=== PATIENT | male | born 1995 | race African-American/Black ===

== ENCOUNTER 2017-07-29 15:21 | Emergency (ER) | payer SELFPAY ==
[~2017-07-29] VITALS: Ht 182.9 cm; Wt 75.0 kg
[2017-07-29 15:23] VITALS: BP 135/84; PULSE 86; RESP 12; TEMP 98.4; O2SAT 96
[2017-07-29] MEDS ORDERED: IBUPROFEN 800 MG TAB PO ONE (16:30)
--- NOTE | 2017-07-29 16:42 | PD ---
HPI Chief Complaint: Injury Time Seen by Provider: 16:33 Travel History International Travel<30 days: No Contact w/Intl Traveler<30days: No Traveled to known affect area: No History of Present Illness HPI 21-year-old male presents to emergency Department with complaint of left hand pain and swelling and left wrist pain since this morning after dropping a TV on his hand. Denies paresthesias, loss of sensation to the affected extremity. Reports full range of motion to all of his fingers. Has been icing his hand for symptom management. Has not taken any medications to alleviate his symptoms. Symptoms are moderate in severity. Pain is aggravated with palpation. He says it doesn't hurt to move his fingers. No known allergies. Has no other medical complaints. No other modifying factors or associated signs and symptoms. PFSH Social History Tobacco Use: No Allergies-Medications (Allergen,Severity, Reaction): Coded Allergies: No Known Allergies (Unverified , 07/29/17) Reported Meds & Prescriptions Reported Meds & Active Scripts Active Lortab (Hydrocodone-Acetaminophen) 5-325 Mg Tab 1 Tab PO Q4H PRN Ibuprofen 800 Mg Tab 800 Mg PO Q6HR PRN Review of Systems Except as stated in HPI: all other systems reviewed are Neg Physical Exam Narrative GENERAL: Well-nourished, well-developed black male patient, in no acute distress SKIN: Warm and dry. HEAD: Atraumatic. Normocephalic. EYES: Pupils equal and round. No scleral icterus. No injection or drainage. ENT: Mucosa pink and moist. Airway patent. NECK: Trachea midline. CARDIOVASCULAR: Regular rate. RESPIRATORY: No accessory muscle use. GASTROINTESTINAL: Flat. MUSCULOSKELETAL: Left hand with edema and ecchymosis over the fourth and fifth at a copper area; with tenderness on palpation over the fourth and fifth metacarpals; without erythema; no obvious deformity; all fingers with full range of motion and sensory intact; less than 3 second cap refill. Left wrist with tenderness on palpation and without erythema, edema, ecchymosis; no obvious deformity; with full range of motion. Left upper extremity is supple and non-tense. 2+ radial pulses and sensory intact. No obvious deformities. No clubbing. No cyanosis. No edema. NEUROLOGICAL: Awake and alert. Oriented 3. No obvious cranial nerve deficits. Motor grossly within normal limits. Normal speech. PSYCHIATRIC: Appropriate mood and affect; insight and judgment normal. Data Data Last Documented VS Vital Signs Date Time Temp Pulse Resp B/P (MAP) Pulse Ox O2 Delivery O2 Flow Rate FiO2 07/29/17 15:23 98.4 86 12 135/84 (101) 96 Orders Orders Hand, Complete ([id number]) (07/29/17 16:25) Wrist, Complete ([id number]) (07/29/17 16:25) Ibuprofen (Motrin) (07/29/17 16:30) Splint Or Brace Apply/Monitor (07/29/17 17:01) Sling Cradle Arm (07/29/17 ) MDM Medical Decision Making Medical Screen Exam Complete: Yes Emergency Medical Condition: Yes Medical Record Reviewed: Yes Differential Diagnosis Fracture, contusion, dislocation Narrative Course 21-year-old male with left hand and wrist injury. I offered the patient pain medication and he requested ibuprofen. Ibuprofen ordered. Left hand and wrist x-ray ordered. 1658: Left hand x-ray concludes: Slightly comminuted fractures of the fourth and fifth mid metacarpals with slight dorsal angulation and displacement particularly of the fourth metacarpal. Left wrist x-ray concludes: Fracture fourth and fifth metacarpals. Ulnar gutter splint placed. Arm sling provided for support. Mandatory outpatient referral ordered for patient follow-up. Lortab and ibuprofen prescribed for home. Instructed patient to follow up with hand specialist by the end of the week. Instructed patient to follow up with primary care provider. Patient verbalizes understanding and agreement with treatment plan. Patient is medically cleared and stable for discharge. Discussed reasons to return to the emergency department. Patient agrees with treatment plan. The patients vital signs are stable and the patient is stable for outpatient follow-up and treatment. Patient discharged home, stable and in no acute distress. Diagnosis Primary Impression: Left hand fracture Qualified Codes: S62.92XA - Unspecified fracture of left wrist and hand, initial encounter for closed fracture Referrals: Hand Surgeon Primary Care Physician Patient Instructions: General Instructions, Hand Fracture (ED) Departure Forms: Tests/Procedures, Work Release Special Instructions: Unable to work until you're cleared by primary care provider or hand specialist Additional Instructions: Tylenol or ibuprofen as directed and as needed to reduce pain Rest, ice, compress, and elevate extremity to decrease pain and inflammation Splint for support; do not remove the splint until you follow up with the hand surgeon Avoid aggravating activity; increase activity as tolerated Follow-up with primary care provider Follow-up with hand surgeon by the end of the week Return to the emergency department immediately with worsening symptoms Med/Other Pt SpecificInfo: Prescription(s) given Scripts Hydrocodone-Acetaminophen (Lortab) 5-325 Mg Tab 1 TAB PO Q4H Y for PAIN, #15 TAB 0 Refills Prov: Carolyn Burns 07/29/17 Ibuprofen (Ibuprofen) 800 Mg Tab 800 MG PO Q6HR Y for PAIN, #40 TAB 0 Refills Prov: Carolyn Burns 07/29/17 Disposition: 01 DISCHARGE HOME Condition: Stable Carolyn Burns Jul 29, 2017 16:42
--- NOTE | 2017-07-29 16:55 | RADRPT ---
EXAM DATE/TIME: 07/29/2017 16:36 [facility] COMPARISON: No previous studies available for comparison. INDICATIONS : Television fell on left hand. Pain in medial metacarpals. MEDICAL HISTORY : None. SURGICAL HISTORY : None. ENCOUNTER: Initial ACUITY: 1 day PAIN SCORE: 8/10 LOCATION: Left hand, 4th & 5th metacarpal FINDINGS: Horizontal fractures through the midportion of the fourth and fifth metacarpals with minimal angulati on. No other fractures are appreciated. CONCLUSION: Fracture fourth and fifth metacarpals. Jimmy Zavala MD FACR on July 29, 2017 at 16:53 Board Certified Radiologist. This report was verified electronically.
--- NOTE | 2017-07-29 16:56 | RADRPT ---
EXAM DATE/TIME: 07/29/2017 16:40 [facility] COMPARISON: No previous studies available for comparison. INDICATIONS : Television fell on left hand. Pain in medial metacarpals. MEDICAL HISTORY : None. SURGICAL HISTORY : None. ENCOUNTER: Initial ACUITY: 1 day PAIN SCORE: 8/10 LOCATION: Left hand, 4th & 5th metacarpal FINDINGS: Slightly comminuted fractures of the fourth and fifth mid metacarpals with slight dorsal angulation a nd displacement particularly of the fourth metacarpal. Remaining osseous structures appear intact. Raina int spaces are maintained. There is soft tissue swelling primarily along the dorsum of the hand. CONCLUSION: 1. Mid fourth and fifth metacarpal fractures, as above. Jose David Leyva MD on July 29, 2017 at 16:53 Board Certified Radiologist. This report was verified electronically.
[2017-07-29] MEDS ORDERED: HYDR-3533 PO ×2 (16:57→17:05)
[2017-07-29] MEDS ORDERED: IBUP800T23 PO (16:57)
== END 2017-07-29 17:50 | disposition home or self-care (01) ==
LOC: NEPK 15:21
DX: S62.92XA Unspecified fracture of left hand, initial encounter for closed fracture (principal); W23.0XXA Caught, crushed, jammed, or pinched between moving objects, initial encounter
CPT/HCPCS: 73110; 73130; 99283

== ENCOUNTER 2017-08-10 16:11 | Inpatient (IN) | payer MEDICAID ==
[~2017-08-10] VITALS: Ht 182.9 cm; Wt 79.5 kg
[~2017-08-10 16:11] MED LIST: HYDR-3533 PO; IBUP800T23 PO
[2017-08-10 16:14] VITALS: BP 133/82; PULSE 95; RESP 18; TEMP 98.4; O2SAT 99
--- NOTE | 2017-08-10 18:50 | RADRPT ---
EXAM DATE/TIME: 08/10/2017 18:23 [facility] COMPARISON: HAND LEFT COMPLETE ([id number]), July 29, 2017, 16:40. INDICATIONS : Left hand pain fourth and fifth digits. MEDICAL HISTORY : None. SURGICAL HISTORY : None. ENCOUNTER: Initial ACUITY: 1 week PAIN SCORE: 8/10 LOCATION: Left hand FINDINGS: 3 views of left hand show acute fractures involving the fourth and fifth metacarpals. These fractures involve the mid diaphyses. There has been dorsal displacement of the distal fracture fragment of the fourth metacarpal relative to the proximal fracture fragment when compared to the prior study. This further angulation has resulted in 1-2 mm of overlap. The facet fracture is stable. Dorsal soft tissu e swelling is noted. CONCLUSION: Dorsal displacement of the distal fracture fragment of the fourth metacarpal fracture relative to the prior study. The fifth metacarpal fracture is unchanged. Paulie Raphael Jr., MD on August 10, 2017 at 18:48 Board Certified Radiologist. This report was verified electronically.
--- NOTE | 2017-08-10 19:07 | PD ---
HPI Chief Complaint: Medical Clearance Time Seen by Provider: 16:33 Travel History International Travel<30 days: No Contact w/Intl Traveler<30days: No Traveled to known affect area: No History of Present Illness HPI 21-year-old left-handed male presents to the emergency room for evaluation of left hand fracture. Patient broke his hand 12 days ago after dropping a TV on it. States he was splinted and told to follow-up with a hand surgeon but the mandatory outpatient referral was never placed and patient never was able to follow-up. States this morning in the shower he got his splint wet so they came to have it replaced. Patient denies any worsening pain or paresthesias. He reports decreased strength in the fourth and fifth fingers. He has otherwise been compliant and kept his splint on. No chronic medical conditions or daily medications. [facility] Social History Tobacco Use: No Allergies-Medications (Allergen,Severity, Reaction): Coded Allergies: No Known Allergies (Unverified , 07/29/17) Reported Meds & Prescriptions Reported Meds & Active Scripts Active Lortab (Hydrocodone-Acetaminophen) 5-325 Mg Tab 1 Tab PO Q4H PRN Ibuprofen 800 Mg Tab 800 Mg PO Q6HR PRN Review of Systems Except as stated in HPI: all other systems reviewed are Neg Physical Exam Narrative GENERAL: Well-nourished, well-developed male in no acute distress. Afebrile. Ambulatory. SKIN: Focused skin assessment warm/dry. Heme or ecchymosis. HEAD: Normocephalic. EYES: No scleral icterus. No injection or drainage. NECK: Supple, trachea midline. No JVD or lymphadenopathy. CARDIOVASCULAR: Regular rate and rhythm without murmurs, gallops, or rubs. RESPIRATORY: Breath sounds equal bilaterally. No accessory muscle use. MUSCULOSKELETAL: No cyanosis. Moderate edema of the left hand. Moderate tenderness to palpation in the left fourth and fifth fingers. There is obvious deformity of the fourth metacarpal. Less than 2 second capillary refill distally. 2+ radial pulse. Full range motion of the left hand. No obvious rotation or angulation. Decreased strength with extension of the left fourth and fifth fingers. Data Data Last Documented VS Vital Signs Date Time Temp Pulse Resp B/P (MAP) Pulse Ox O2 Delivery O2 Flow Rate FiO2 08/10/17 16:14 98.4 95 18 133/82 (99) 99 Orders Orders Hand, Complete ([id number]) (08/10/17 ) [facility] Medical Decision Making Medical Screen Exam Complete: Yes Emergency Medical Condition: Yes Medical Record Reviewed: Yes Differential Diagnosis Fracture, strain, sprain, contusion Narrative Course 21-year-old male presents to the emergency room for evaluation of left hand pain and swelling for the past 12 days. Patient broke his hand 12 days ago and came to the emergency room and was splinted. Was supposed to follow up with hand surgery but mandatory outpatient referral was not placed. States he returned today because his splint got wet. Reports no worsening of symptoms or paresthesias. There is obvious deformity of the left fourth metacarpal which is tender to palpation. Left hand is Neurovascularly intact. He has decreased strength with extension in the fourth and fifth fingers. I spoke to the hand surgeon program production specialist, Dr. Davenport, who recommends new x-rays and admission to medical service for surgical fixation likely tomorrow. Patient is agreeable. Diagnosis Primary Impression: Closed left hand fracture Qualified Codes: S62.92XD - Unspecified fracture of left wrist and hand, subsequent encounter for fracture with routine healing Admitting Information Admitting Physician Requests: Observation Condition: Stable Aniya Romero Aug 10, 2017 19:07
[2017-08-10] MEDS ORDERED: SODIUM CHLORIDE 0.9% FLUSH 10 ML FLUSH IVF PRN (19:15)
[2017-08-10 19:32] VITALS: BP 145/95; PULSE 90; RESP 18; O2SAT 99
--- NOTE | 2017-08-10 19:34 | PD ---
Physical Exam Date Seen by Provider: Aug 10, 2017 Time Seen by Provider: 19:31 Narrative 21-year-old male that presents to the ED for evaluation of left hand injury. I was asked by Aniya COOK to disposition patient to admit to the [facility] or resident team for surgery tomorrow. Please refer to her note. Data Data Last Documented VS Vital Signs Date Time Temp Pulse Resp B/P (MAP) Pulse Ox O2 Delivery O2 Flow Rate FiO2 08/10/17 16:14 98.4 95 18 133/82 (99) 99 Orders Orders Hand, Complete ([id number]) (08/10/17 ) Complete Blood Count With Diff (08/10/17 19:07) Comprehensive Metabolic Panel (08/10/17 19:07) Prothrombin Time / Inr (Pt) (08/10/17 19:07) Act Partial Throm Time (Ptt) (08/10/17 19:07) Type And Screen (08/10/17 19:07) Iv Access Insert/Monitor (08/10/17 19:07) Ice/Cold Pack (08/10/17 19:07) Sodium Chloride 0.9% Flush (Ns Flush) (08/10/17 19:15) Admit Order (Ed Use Only) (08/10/17 19:28) Consult Hand Surgery (08/10/17 ) [facility] Medical Record Reviewed: Yes Supervised Visit with PEDRO: No Interpretation(s) Last Impressions Hand X-Ray 08/10/17 0000 Signed Impressions: Service Date/Time: Saturday, August 10, 2017 18:23 - CONCLUSION: Dorsal displacement of the distal fracture fragment of the fourth metacarpal fracture relative to the prior study. The fifth metacarpal fracture is unchanged. Paulie Raphael Jr., MD Differential Diagnosis Fracture versus nonhealing fracture versus chronic pain Narrative Course 21-year-old male that presents to the ED for evaluation of hand fracture. Please refer to a hi PACs provider note. I was asked to disposition the patient and admit him to medicine. She had already spoken with hand surgeon extractions technician who recommended admission and nothing by mouth after midnight. Surgery tomorrow morning. I spoke with the residents who agreed to this admission. Patient was admitted. Patient was put in a splint. Labs were already ordered and pending. Patient was told all this by Aniya JIMENEZ and family and patient agree with plan. Diagnosis Primary Impression: Closed left hand fracture Qualified Codes: S62.92XD - Unspecified fracture of left wrist and hand, subsequent encounter for fracture with routine healing Admitting Information Admitting Physician Requests: Observation Condition: Stable Yamil Barron Aug 10, 2017 19:34
[2017-08-10 19:44] LABS: AUTOMATED NEUTROPHIL # 4.1 TH/MM3 (1.8-7.7); BASOPHIL % 0.3 % (0.0-2.0); EOSINOPHIL # 0.1 TH/MM3 (0-0.4); EOSINOPHIL % 0.8 % (0.0-4.0); HEMATOCRIT 40.5 % (39.0-51.0); HEMO FLAGS DIFF FINAL; LYMPH % 40.7 % (9.0-44.0); LYMPHOCYTE # 3.2 TH/MM3 (1.0-4.8); MEAN CELL VOLUME 82.3 FL (80.0-100.0); MEAN CORPUSCULAR HEMOGLOBIN 28.6 PG (27.0-34.0); MEAN CORPUSCULAR HGB CONC 34.7 % (32.0-36.0); MONO % 6.2 % (0.0-8.0); PLATELET COUNT 254 TH/MM3 (150-450); RED BLOOD COUNT 4.92 MIL/MM3 (4.50-5.90); RED CELL DISTRIBUTION WIDTH 12.6 % (11.6-17.2)
[2017-08-10 19:58] LABS: ALT (GPT) 20 U/L (9-52)
[2017-08-10] MEDS ORDERED: SENNOSIDES 8.6 MG TAB PO PRN (20:00)
[2017-08-10] MEDS ORDERED: SODIUM CHLORIDE 0.9% FLUSH 10 ML FLUSH IV FLUSH PRN (20:00)
[2017-08-10] MEDS ORDERED: ONDANSETRON HCL 4 MG/2 ML VIAL IVP PRN (20:00)
[2017-08-10] MEDS ORDERED: ACETAMINOPHEN 325 MG TAB PO PRN (20:00)
[2017-08-10] MEDS ORDERED: ACETAMINOPHEN/HYDROcodone 325 MG/5 MG TAB PO PRN (20:00)
[2017-08-10] MEDS ORDERED: NALOXONE HCL 0.4 MG/ML AMP IV PUSH PRN (20:00)
[2017-08-10] MEDS ORDERED: BISACODYL 10 MG SUPP RECTAL PRN (20:00)
[2017-08-10] MEDS ORDERED: MAGNESIUM HYDROXIDE SUSP 30 ML CUP PO PRN (20:00)
[2017-08-10] MEDS ORDERED: LACTULOSE SYRUP 20 GM/30 ML CUP PO PRN (20:00)
[2017-08-10 20:01] LABS: ALKALINE PHOSPHATASE 63 U/L (45-117); TOTAL BILIRUBIN ADULT 0.3 MG/DL (0.2-1.0)
[2017-08-10 20:09] LABS: ANION GAP 7 MEQ/L (5-15); APTT (PATIENT) 27.4 SEC (24.3-30.1); AST (GOT) 9 U/L (15-39); BICARBONATE 26.6 MEQ/L (21.0-32.0); BLOOD UREA NITROGEN 5 MG/DL (7-18); CHLORIDE 107 MEQ/L (98-107); GLOMERULAR FILTRATION RATE 139 ML/MIN (>89); POTASSIUM 3.6 MEQ/L (3.5-5.1); PROTHROMBIN TIME - PATIENT 10.6 SEC (9.8-11.6); SODIUM (NA) 141 MEQ/L (136-145)
--- NOTE | 2017-08-10 20:09 | HHI.HP ---
[facility] Service Family Medicine Primary Care Physician Karla Baer, DO Admission Diagnosis left hand 4th and 5th metacarpal fractures Diagnoses: International Travel<30 Days: No Contact w/Intl Traveler<30days: No History of Present Illness Patient is a 21 year old male with no significant PMH who presents for follow- up of left hand fractures. He had a TV fall on the left hand when he tried to move it on 07/29/17 It was placed in a splint in the ED that day and patient was to follow up as outpatient Referral not placed and no follow up occurred He did note getting splint wet today Patient states pain only occurs when he tries to close the fingers He is able to use 1st through 3rd fingers without difficulty He is left-handed He denies any other concerns and states Lortab helped with the pain significantly Review of Systems Constitutional: DENIES: Fever, Chills Eyes: DENIES: Blurred vision, Diplopia Ears, nose, mouth, throat: DENIES: Hearing loss, Vertigo Musculoskeletal: COMPLAINS OF: Joint pain, Joint Swelling, DENIES: Stiffness, Back pain, Neck pain Integumentary: DENIES: Pruritus, Rash Hematologic/lymphatic: DENIES: Bruising, Lymphadenopathy Neurologic: COMPLAINS OF: Paresthesias (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), DENIES: Abnormal gait, Headache, Poor Balance Past Family Social History Past Medical History None reported Past Surgical History None reported Reported Medications Reported Meds & Active Scripts Active Lortab (Hydrocodone-Acetaminophen) 5-325 Mg Tab 1 Tab PO Q4H PRN Ibuprofen 800 Mg Tab 800 Mg PO Q6HR PRN Allergies: Coded Allergies: No Known Allergies (Unverified , 07/29/17) Active Ordered Medications Inpatient Medications Acetaminophen (Tylenol) 650 mg Q4H PRN PO FEVER > 100.4; Start 08/10/17 at 20: 00 Acetaminophen/ Hydrocodone Bitart (Crocker 5-325 Mg) 1 tab Q4H PRN PO PAIN SCALE 3 TO 5; Start 08/10/17 at 20:00 Acetaminophen/ Hydrocodone Bitart (Crocker 10-325 Mg) 1 tab Q4H PRN PO PAIN SCALE 6 TO 10; Start 08/10/17 at 20:00 Bisacodyl (Dulcolax Supp) 10 mg DAILY PRN RECTAL SEVERE CONSITIPATION; Start 10/21/17 at 20:00 Lactulose (Lactulose Liq) 30 ml DAILY PRN PO SEVERE CONSITIPATION; Start 08/10 at 20:00 Magnesium Hydroxide (Milk Of Magnesia Liq) 30 ml Q12H PRN PO Mild constipation ; Start 08/10/17 at 20:00 Morphine Sulfate (Morphine Inj) 4 mg Q3H PRN IV PUSH BREAKTHROUGH PAIN; Start 08/10/17 at 20:00 Naloxone HCl (Narcan Inj) 0.4 mg UNSCH PRN IV PUSH SEE LABEL COMMENTS; Start 08/10/17 at 20:00 Ondansetron HCl (Zofran Inj) 4 mg Q6H PRN IVP NAUSEA OR VOMITING; Start at 20:00 Senna/Docusate Sodium (Aaliyah-Colace) 1 tab BID PO ; Start 08/10/17 at 21:00 Sennosides (Senokot) 17.2 mg Q12H PRN PO Moderate constipation; Start at 20:00 Sodium Chloride (NS Flush) 2 ml BID IV FLUSH ; Start 08/10/17 at 21:00 Family History Unremarkable Social History Nonsmoker, denies EtoH, denies illicit drugs Physical Exam Vital Signs Vital Signs Date Time Temp Pulse Resp B/P (MAP) Pulse Ox O2 Delivery O2 Flow Rate FiO2 08/10/17 19:32 90 18 145/95 (112) 99 Room Air 08/10/17 16:14 98.4 95 18 133/82 (99) 99 Physical Exam GENERAL: well nourished young male in no apparent distress. Eating Chickfila. Father at bedside. SKIN: Warm and dry. No rashes or ecchymoses. Skin over right hand shiny and mildly erythematous MSK: LEFT hand noted to have bony deformity over dorsal surface over 4th metacarpal area, tender to palpation, skin intact. Erythema and swelling noted, mild. [place]erry Hand limited on this hand over 4th and 5th digits, normal in 1-3rd digits. RIGHT hand exam is normal. HEAD: Atraumatic. Normocephalic. EYES: Pupils equal and round. No scleral icterus. No injection or drainage. ENT: No nasal bleeding or discharge. Mucous membranes pink and moist. NECK: Trachea midline. No JVD. CARDIOVASCULAR: Regular rate and rhythm. 2+ distal pulses including left radial. Normal capillary refill in UEs bilaterally. RESPIRATORY: No accessory muscle use. Clear to auscultation. Breath sounds equal bilaterally. GASTROINTESTINAL: Abdomen soft, non-tender, nondistended. Hepatic and splenic margins not palpable. NEUROLOGICAL: Awake and alert. No obvious cranial nerve deficits. Motor grossly within normal limits. Five out of 5 muscle strength in the arms and legs aside from left hand. Normal speech. Neurovascularly intact. PSYCHIATRIC: Appropriate mood and affect; insight and judgment normal. Laboratory Laboratory Tests Test 08/10/17 19:22 White Blood Count 8.0 Red Blood Count 4.92 Hemoglobin 14.0 Hematocrit 40.5 Mean Corpuscular Volume 82.3 Mean Corpuscular Hemoglobin 28.6 Mean Corpuscular Hemoglobin Concent 34.7 Red Cell Distribution Width 12.6 Platelet Count 254 Mean Platelet Volume 7.2 Neutrophils (%) (Auto) 52.0 Lymphocytes (%) (Auto) 40.7 Monocytes (%) (Auto) 6.2 Eosinophils (%) (Auto) 0.8 Basophils (%) (Auto) 0.3 Neutrophils # (Auto) 4.1 Lymphocytes # (Auto) 3.2 Monocytes # (Auto) 0.5 Eosinophils # (Auto) 0.1 Basophils # (Auto) 0.0 CBC Comment DIFF FINAL Differential Comment Total Protein 6.8 Alkaline Phosphatase 63 Alanine Aminotransferase (ALT/SGPT) 20 Total Bilirubin 0.3 Result Diagram: 08/10/17 1922 Imaging Last Impressions Hand X-Ray 08/10/17 0000 Signed Impressions: Service Date/Time: Thursday, August 10, 2017 18:23 - CONCLUSION: Dorsal displacement of the distal fracture fragment of the fourth metacarpal fracture relative to the prior study. The fifth metacarpal fracture is unchanged. Paulie Raphael Jr., MD Caprini VTE Risk Assessment Caprini VTE Risk Assessment: No/Low Risk (score <= 1) Caprini Risk Assessment Model Point Value = 1 Point Value = 2 Point Value = 3 Point Value = 5 Age 41-60 Minor surgery BMI > 25 kg/m2 Swollen legs Varicose veins or History of unexplained or recurrent spontaneous Oral contraceptives or hormone replacement Sepsis (< 1 month) Serious lung disease, including pneumonia (< 1 month) Abnormal pulmonary function Acute myocardial infarction Congestive heart failure (< 1 month) History of inflammatory bowel disease Medical patient at bed rest Age 61-74 Arthroscopic surgery Major open surgery (> 45 min) Laparoscopic surgery (> 45 min) Malignancy Confined to bed (> 72 hours) Immobilizing plaster cast Central venous access Age >= 75 History of VTE Family history of VTE Factor V Leiden Prothrombin [id number] Lupus anticoagulant Anticardiolipin antibodies Elevated serum homocysteine Heparin-induced thrombocytopenia Other congenital or acquired thrombophilia Stroke (< 1 month) Elective arthroplasty Hip, pelvis, or leg fracture Acute spinal cord injury (< 1 month) Prophylaxis Regimen Total Risk Factor Score Risk Level Prophylaxis Regimen 0-1 Low Early ambulation 2 Moderate Order ONE of the following: *Sequential Compression Device (SCD) *Heparin 5000 units SQ BID 3-4 Higher Order ONE of the following medications: *Heparin 5000 units SQ TID *Enoxaparin/Lovenox 40 mg SQ daily (WT < 150 kg, CrCl > 30 mL/min) *Enoxaparin/Lovenox 30 mg SQ daily (WT < 150 kg, CrCl > 10-29 mL/min) *Enoxaparin/Lovenox 30 mg SQ BID (WT < 150 kg, CrCl > 30 mL/min) AND/OR *Sequential Compression Device (SCD) 5 or more Highest Order ONE of the following medications: *Heparin 5000 units SQ TID (Preferred with Epidurals) *Enoxaparin/Lovenox 40 mg SQ daily (WT < 150 kg, CrCl > 30 mL/min) *Enoxaparin/Lovenox 30 mg SQ daily (WT < 150 kg, CrCl > 10-29 mL/min) *Enoxaparin/Lovenox 30 mg SQ BID (WT < 150 kg, CrCl > 30 mL/min) AND *Sequential Compression Device (SCD) Assessment and Plan Assessment and Plan 21M with left hand injury from TV falling on it 2.5 weeks ago, with resultant nonhealing left 4th metacarpal, displaced. He will be admitted for surgical management. PA in ED spoke with Dr. Grace who agrees to evaluate in the morning. He will be NPO after midnight for possible surgical intervention. To be placed in splint. Labs were already ordered and pending. Pain control with tylenol and Crocker, with morphine PRN. Patient and father agree with plan. Code Status Full Code Discussed Condition With Dr. Mayo Problem List: (1) Closed left hand fracture ICD Codes: S62.92XA - Unspecified fracture of left wrist and hand, initial encounter for closed fracture Status: Acute Plan: As above (2) Fluids/Electrolytes/Nutrition/Prophylaxis Status: Acute Plan: Fluids: tolerating PO, NPO after midnight Electrolytes: monitor and replete as needed Nutrition: regular diet, NPO after midnight DVT Prophylaxis: Early ambulation. Low risk GI Prophylaxis: Not indicated Physician Certification 2 Midnight Certification Type: Admission for Inpatient Services Order for Inpatient Services The services are ordered in accordance with Medicare regulations or non- Medicare payer requirements, as applicable. In the case of services not specified as inpatient-only, they are appropriately provided as inpatient services in accordance with the 2-midnight benchmark. Estimated LOS (days): 2 days is the estimated time the patient will need to remain in the hospital, assuming treatment plan goals are met and no additional complications. Post-Hospital Plan: Home Problem Qualifiers (1) Closed left hand fracture: Qualified Codes: S62.92XD - Unspecified fracture of left wrist and hand, subsequent encounter for fracture with routine healing Niki Wheat MD R2 Aug 10, 2017 20:09
[2017-08-10 20:43] VITALS: BP 146/69; PULSE 74; RESP 16; TEMP 96.8; O2SAT 95
[2017-08-10] MEDS: DOCUSATE SODIUM 50 MG/SENNA 8.6 MG TAB PO SCH (21:00)
[2017-08-10] MEDS: SODIUM CHLORIDE 0.9% FLUSH 10 ML FLUSH IV FLUSH SCH (21:00)
[2017-08-10] MEDS: ACETAMINOPHEN/HYDROcodone 325 MG/10 MG TAB PO PRN (22:11)
[2017-08-10] MEDS ORDERED: METOPROLOL TARTRATE 25 MG TAB PO PRN (22:45)
[2017-08-10] MEDS ORDERED: INSULIN HUMAN REGULAR 1,000 UNITS/10 ML VIAL SQ PRN (22:45)
[2017-08-10] MEDS ORDERED: SODIUM CHLORID 0.9% 500 ML IV PRN (22:45)
[2017-08-10] MEDS ORDERED: CHLORHEXIDINE GLUCONATE 2 % 1 PACK (2 CLOTHS) TOPICAL PRN (22:45)
[2017-08-10] MEDS ORDERED: POVIDONE IODINE 5% (ANTISEPSIS KIT) 4 APPLICATIONS EACH NARE PRN (22:45)
--- NOTE | 2017-08-10 22:56 | MB ---
cc: REDD TIDWELL MD DATE OF CONSULTATION 08/10/17 REASON FOR CONSULTATION Left hand fracture. HISTORY OF PRESENT ILLNESS The patient is a 21-year-old left-hand dominant male who presented to the ED with complaints of injury to the left hand. The patient states 12 days ago a TV fell on his left hand while he was carrying the TV. The patient was initially seen at [place] emergency room. He had x-rays done, was diagnosed with fourth and fifth metacarpal shafts of the left hand. The patient was advised to follow up with a hand surgeon. The patient did not follow up with a hand surgeon. He presented today to the ED with splint getting wet. Denies any open wounds. Denies any tingling or numbness. PAST MEDICAL HISTORY/PAST SURGICAL HISTORY As noted. PHYSICAL EXAMINATION The patient is alert and oriented x3. Examination of left upper extremity reveals ulnar gutter splint in place. Examination after removal of splint reveals prominence over the fourth metacarpal shaft region, tenderness noted over the region. He has limited extension of the ring and little fingers. Range of motion of the fingers are limited and painful. He has intact sensation distally. He has intact capillary refill. X-rays of the left hand done today were reviewed, shows displaced fourth metacarpal shaft with dorsal apex angulation. There was overlap of the fragments on the lateral view. Also noted is a nondisplaced shaft fracture of the fifth metacarpal. This was compared to the previous x-rays done about 12 days ago which shows fracture fourth and fifth metacarpal shaft with the fourth shaft with a dorsal apex angulation. ASSESSMENT A 21-year-old male with fourth and fifth metacarpal shaft fracture left hand 12 days. PLAN The patient has a displaced fourth metacarpal shaft and displaced fifth metacarpal shaft. Because of the overlap and dorsal apex angulation, he would benefit from reduction and fixation. Risks and benefits of the procedure was explained to the patient. The patient is consented for closed/open reduction internal fixation fourth metacarpal shaft and possible fixation of the fifth metacarpal shaft of the left hand. We will proceed with surgery tomorrow morning. We will keep the patient n.p.o. from midnight. MD KATHY Fink /9:24 PM /10:42 PM
[2017-08-10 23:45] VITALS: BP_SYST 112; BP_SYST 120; BP_DIAS 66; BP_DIAS 82; PULSE 110; PULSE 69; RESP 18; TEMP 96.9; TEMP 99.5; O2SAT 96; O2SAT 99
[2017-08-11] MEDS: MORPHINE SULFATE 4 MG/ML INJ IV PUSH PRN ×2 (01:49→05:30)
[2017-08-11 03:10] VITALS: BP 141/67; PULSE 68; RESP 18; TEMP 96.9; O2SAT 97
[2017-08-11 08:00] VITALS: BP 106/60; PULSE 45; RESP 16; TEMP 96.6; O2SAT 100
[2017-08-11] MEDS: DOCUSATE SODIUM 50 MG/SENNA 8.6 MG TAB PO SCH ×2 (09:21→22:36)
[2017-08-11] MEDS: SODIUM CHLORIDE 0.9% FLUSH 10 ML FLUSH IV FLUSH SCH ×2 (09:22→22:37)
[2017-08-11] MEDS: ACETAMINOPHEN/HYDROcodone 325 MG/10 MG TAB PO PRN ×2 (09:22→19:40)
[2017-08-11] MEDS: LACTATED RINGER'S 1000 ML IV PRN (09:29)
--- NOTE | 2017-08-11 09:39 | HHI.FPPN ---
Subjective Remarks Patient is not in acute distress. Pain well controlled. Surgery scheduled for 1045 this am. No prob with anesthesia in family. NO surgeries perviously. No Hx of heart disease. METs > 4. AFVSS. NPO since midnight. Was told that his hand is not healing well and will need to be surgically corrected. (Kike Israel MD, R3) Objective Vitals Vital Signs Date Time Temp Pulse Resp B/P (MAP) Pulse Ox O2 Delivery O2 Flow Rate FiO2 08/11/17 03:10 96.9 68 18 141/67 (91) 97 08/10/17 23:45 96.9 69 18 112/66 (81) 96 08/10/17 21:02 08/10/17 20:43 96.8 74 16 146/69 (94) 95 08/10/17 19:32 90 18 145/95 (112) 99 Room Air 08/10/17 16:14 98.4 95 18 133/82 (99) 99 I/O 08/10/17 08/10/17 08/10/17 08/11/17 08/11/17 08/11/17 07:00 15:00 23:00 07:00 15:00 23:00 Intake Total 120 ml Balance 120 ml Intake Oral 120 ml # Voids 3 # Bowel Movements 0 (Kike Israel MD, R3) Result Diagram: 08/10/17192108/10/171921 A/P Assessment and Plan 21M with left hand injury from TV falling on it 2.5 weeks ago, with resultant nonhealing left 4th metacarpal, displaced. He will be admitted for surgical management. As per Dr. Grace, he will likely ORIF given apex angulation and overlap. We appreciate their management. Labs grossly WNL. Pain control with tylenol and [place], with morphine PRN. Patient and father agree with plan. (Kike Israel MD, R3) Attending Attestation Table rounds were conducted about patients admission with Dr Chavira, Dr Wheat, Dr Mayo and Dr Alonzo, EMR reviewed, patient was then seen and examined, Agree with contents os note, See Orders. (Chris Mckeon MD) Problem List: (1) Closed left hand fracture ICD Codes: S62.92XA - Unspecified fracture of left wrist and hand, initial encounter for closed fracture Status: Acute Plan: As above (2) Fluids/Electrolytes/Nutrition/Prophylaxis Status: Acute Plan: Fluids: tolerating PO, NPO after midnight Electrolytes: monitor and replete as needed Nutrition: regular diet, NPO after midnight DVT Prophylaxis: Early ambulation. Per ortho. GI Prophylaxis: Not indicated Dr. Mckeon, Dr. Ryan Wheat, Dr. Dania Mayo. (Kike Israel MD, R3) Problem Qualifiers (1) Closed left hand fracture: Qualified Codes: S62.92XD - Unspecified fracture of left wrist and hand, subsequent encounter for fracture with routine healing Kike Israel MD, R3 Aug 11, 2017 09:39 Chris Mckeon MD Aug 12, 2017 18:41
[2017-08-11 12:00] VITALS: BP 115/64; PULSE 55; RESP 16; TEMP 96.6; O2SAT 99
[2017-08-11] MEDS ORDERED: ACETAMINOPHEN 1000 MG/100 ML 0 ML IV ONE (15:33)
[2017-08-11] MEDS ORDERED: LIDOCAINE HCL 2% 50 ML VIAL ONE (15:46)
[2017-08-11] MEDS ORDERED: BACITRACIN TOP OINT 15 GM TUBE ONE (15:46)
[2017-08-11 16:00] VITALS: BP 125/59; PULSE 52; RESP 16; TEMP 96; O2SAT 100
[2017-08-11 20:05] VITALS: BP 125/60; PULSE 72; RESP 16; TEMP 96.8; O2SAT 97
[2017-08-12 00:10] VITALS: BP 114/65; PULSE 63; RESP 16; TEMP 97.4; O2SAT 98
[2017-08-12 04:15] VITALS: BP 113/72; PULSE 73; RESP 16; TEMP 96.5; O2SAT 98
[2017-08-12 07:17] VITALS: BP 103/59; PULSE 69; RESP 16; TEMP 96.4; O2SAT 98
[2017-08-12] MEDS: ACETAMINOPHEN/HYDROcodone 325 MG/10 MG TAB PO PRN ×3 (07:48→23:51)
[2017-08-12] MEDS: DOCUSATE SODIUM 50 MG/SENNA 8.6 MG TAB PO SCH ×2 (07:50→19:39)
[2017-08-12] MEDS: LACTATED RINGER'S 1000 ML IV PRN (07:51)
[2017-08-12] MEDS ORDERED: DEXAMETHASONE SOD PHOS 4 MG/ML VIAL IV ONE (08:41)
[2017-08-12] MEDS ORDERED: ceFAZolin INJ 1,000 MG VIAL IV ONE ×2 (08:41→12:20)
[2017-08-12] MEDS ORDERED: ONDANSETRON HCL 4 MG/2 ML VIAL IV PUSH ONE (08:41)
[2017-08-12] MEDS ORDERED: MIDAZOLAM HCL 2 MG/2 ML VIAL IV ONE (08:41)
[2017-08-12] MEDS ORDERED: PHENYLEPH/NS 1000 MCG/10 ML SYR IV ONE (08:41)
[2017-08-12] MEDS ORDERED: PROPOFOL 200 MG/20 ML AMP IV ONE (08:41)
[2017-08-12] MEDS ORDERED: LIDOCAINE HCL 1% PF 5 ML AMPULE OTHER ONE (08:43)
[2017-08-12] MEDS ORDERED: ROCURONIUM INJ 50 MG/5 ML SYRINGE IV PUSH ONE (08:43)
[2017-08-12] MEDS: SODIUM CHLORIDE 0.9% FLUSH 10 ML FLUSH IV FLUSH SCH ×2 (09:00→19:40)
[2017-08-12] MEDS ORDERED: ACETAMINOPHEN 1000 MG/100 ML 100 ML IV ONE (10:48)
[2017-08-12] MEDS ORDERED: LIDOCAINE HCL 2% 50 ML VIAL ONE (11:19)
[2017-08-12] MEDS ORDERED: BACITRACIN TOP OINT 15 GM TUBE ONE (11:20)
--- NOTE | 2017-08-12 11:40 | HHI.FPPN ---
Subjective Remarks Patient was seen and examined this morning. No complaints. No pain with current regimen. No nausea, vomiting. It is noted that he apparently ate chips yesterday prior to OR procedure and thus it was rescheduled for today. He endorses that he has not had anything to eat today. Objective Vitals Vital Signs Date Time Temp Pulse Resp B/P (MAP) Pulse Ox O2 Delivery O2 Flow Rate FiO2 08/12/17 07:17 96.4 69 16 103/59 (74) 98 08/12/17 04:15 96.5 73 16 113/72 (86) 98 08/12/17 00:10 97.4 63 16 114/65 (81) 98 08/11/17 20:05 96.8 72 16 125/60 (81) 97 08/11/17 16:00 96.0 52 16 125/59 (81) 100 08/11/17 12:00 96.6 55 16 115/64 (81) 99 I/O 08/11/17 08/11/17 08/11/17 08/12/17 08/12/17 08/12/17 07:00 15:00 23:00 07:00 15:00 23:00 Intake Total 120 ml 480 ml 0 ml Balance 120 ml 480 ml 0 ml Intake Oral 120 ml 480 ml 0 ml # Voids 3 3 2 2 # Bowel Movements 0 0 0 Result Diagram: 08/10/17192108/10/171921 Imaging Last Impressions Hand X-Ray 08/10/17 0000 Signed Impressions: Service Date/Time: Thursday, August 10, 2017 18:23 - CONCLUSION: Dorsal displacement of the distal fracture fragment of the fourth metacarpal fracture relative to the prior study. The fifth metacarpal fracture is unchanged. Paulie Raphael Jr., MD Objective Remarks GENERAL: well nourished young male in no apparent distress. SKIN: Warm and dry. No rashes or ecchymoses. Skin over right hand shiny and mildly erythematous MSK: Left hand is in a splint with normal appearing fingers distally. No swelling noted. Automatic Grinding Machine Operator limited on this hand over 4th and 5th digits, normal in 1- 3rd digits. RIGHT hand exam is normal. HEAD: Atraumatic. Normocephalic. EYES: Pupils equal and round. No scleral icterus. No injection or drainage. ENT: No nasal bleeding or discharge. Mucous membranes pink and moist. NECK: Trachea midline. No JVD. CARDIOVASCULAR: Regular rate and rhythm. 2+ distal pulses including left radial. Normal capillary refill in UEs bilaterally. RESPIRATORY: No accessory muscle use. Clear to auscultation. Breath sounds equal bilaterally. GASTROINTESTINAL: Abdomen soft, non-tender, nondistended. Hepatic and splenic margins not palpable. NEUROLOGICAL: Awake and alert. No obvious cranial nerve deficits. Motor grossly within normal limits. Five out of 5 muscle strength in the arms and legs aside from left hand. Normal speech. Neurovascularly intact. PSYCHIATRIC: Appropriate mood and affect; insight and judgment normal. Medications and IVs Inpatient Medications Acetaminophen (Tylenol) 650 mg Q4H PRN PO FEVER > 100.4; Start 08/10/17 at 20: 00 Acetaminophen/ Hydrocodone Bitart ([place] 5-325 Mg) 1 tab Q4H PRN PO PAIN SCALE 3 TO 5; Start 08/10/17 at 20:00 Acetaminophen/ Hydrocodone Bitart ([place] 10-325 Mg) 1 tab Q4H PRN PO PAIN SCALE 6 TO 10 Last administered on 08/12/17 07:48; Start 08/10/17 at 20:00 Bisacodyl (Dulcolax Supp) 10 mg DAILY PRN RECTAL SEVERE CONSITIPATION; Start 08/10/17 at 20:00 Chlorhexidine Gluconate (Chlorhexidine 2% Cloth) 3 pack MARINE CARGO INSPECTOR PRN TOPICAL SEE LABEL COMMENTS; Start 08/10/17 at 22:45; Stop 08/13/17 at 22:44 Insulin Human Regular (NovoLIN R INJ) See Protocol Table ... MARINE CARGO INSPECTOR PRN SQ SEE PROTOCOL TABLE; Start 08/10/17 at 22:45; Stop 08/13/17 at 22:44 Lactated Ringer's 1,000 ml @ 30 mls/hr Q24H PRN IV SEE LABEL COMMENTS Last administered on 08/12/17 07:51; Start 08/10/17 at 22:45; Stop 08/13/17 at 22 :44 Lactulose (Lactulose Liq) 30 ml DAILY PRN PO SEVERE CONSITIPATION; Start 08/10 at 20:00 Magnesium Hydroxide (Milk Of Magnesia Liq) 30 ml Q12H PRN PO Mild constipation ; Start 08/10/17 at 20:00 Metoprolol Tartrate (Lopressor) 25 mg MARINE CARGO INSPECTOR PRN PO SEE LABEL COMMENTS; Start 08/10/17 at 22:45; Stop 08/13/17 at 22:44 Morphine Sulfate (Morphine Inj) 4 mg Q3H PRN IV PUSH BREAKTHROUGH PAIN Last administered on 08/11/17 05:30; Start 08/10/17 at 20:00 Naloxone HCl (Narcan Inj) 0.4 mg UNSCH PRN IV PUSH SEE LABEL COMMENTS; Start 08/10/17 at 20:00 Ondansetron HCl (Zofran Inj) 4 mg Q6H PRN IVP NAUSEA OR VOMITING; Start at 20:00 Povidone Iodine (Betadine 5% Antisepsis Kit) 1 applic MARINE CARGO INSPECTOR PRN EACH NARE SEE LABEL COMMENTS; Start 08/10/17 at 22:45; Stop 08/13/17 at 22:44 Senna/Docusate Sodium (Aaliyah-Colace) 1 tab BID PO Last administered on 07:50; Start 08/10/17 at 21:00 Sennosides (Senokot) 17.2 mg Q12H PRN PO Moderate constipation; Start at 20:00 Sodium Chloride 500 ml @ 30 mls/hr [id number] PRN IV SEE LABEL COMMENTS; Start at 22:45; Stop 08/13/17 at 22:44 Sodium Chloride (NS Flush) 2 ml BID IV FLUSH Last administered on 08/11/17 22 :37; Start 08/10/17 at 21:00 Urinary Catheter: No Vascular Central Line Catheter: No A/P Assessment and Plan 21M with left hand injury from TV falling on it 2.5 weeks ago, with resultant nonhealing left 4th metacarpal, displaced. He will be admitted for surgical management. As per Dr. Grace, he will have ORIF given angulation and overlap. We appreciate their management. Labs grossly WNL. Pain control with Tylenol and [place], with morphine PRN. Patient and father agree with plan. Discharge Planning Pending OR procedure, possibly home later today or tomorrow. Problem List: (1) Closed left hand fracture ICD Codes: S62.92XA - Unspecified fracture of left wrist and hand, initial encounter for closed fracture Status: Acute Plan: As above (2) Fluids/Electrolytes/Nutrition/Prophylaxis Status: Acute Plan: Fluids: NPO after midnight Electrolytes: monitor and replete as needed Nutrition: regular diet, NPO after midnight DVT Prophylaxis: Early ambulation. Per ortho. GI Prophylaxis: Not indicated Problem Qualifiers (1) Closed left hand fracture: Qualified Codes: S62.92XD - Unspecified fracture of left wrist and hand, subsequent encounter for fracture with routine healing Niki Wheat MD R2 Aug 12, 2017 11:40
[2017-08-12] MEDS ORDERED: DO NOT ADM ANY ANTICOAGULANT DRUGS PRN (13:50)
--- NOTE | 2017-08-12 13:51 | PD.OP ---
Operative Report Preoperative Diagnosis: (1) Closed displaced fracture of shaft of fourth metacarpal bone of left hand (2) Nondisplaced fracture of shaft of fifth metacarpal bone of left hand Postoperative Diagnosis: (1) Closed displaced fracture of shaft of fourth metacarpal bone of left hand (2) Nondisplaced fracture of shaft of fifth metacarpal bone of left hand Procedure: attempted closed reduction open reduction and internal fixation fourth metacarpal shaft fracture left hand Anesthesia: general Surgeon: Jamel Grace Drop Man(s): marybeth Operation and Findings: displaced fourth metacarpal shaft fracture left hand undisplaced fifth metacarpal shaft fracture left hand Jamel Grace MD Aug 12, 2017 13:51
[2017-08-12] MEDS ORDERED: *morphine SULFATE 8 MG/ML PERIprocedure ONLY ONE (14:07)
[2017-08-12] MEDS ORDERED: *MEPERIDINE 25 MG INJ VIAL PERIprocedural Use ONLY ONE (14:20)
[2017-08-12 15:00] VITALS: BP 148/65; PULSE 76; RESP 16; TEMP 97.9; O2SAT 98
[2017-08-12] MEDS: MORPHINE SULFATE 4 MG/ML INJ IV PUSH PRN ×2 (15:35→19:40)
[2017-08-12 20:00] VITALS: BP 144/74; PULSE 83; RESP 16; TEMP 98.4; O2SAT 99
[2017-08-13] VITALS: BP 121/65; PULSE 61; RESP 15; TEMP 98.1; O2SAT 98
[2017-08-13] MEDS: ACETAMINOPHEN/HYDROcodone 325 MG/10 MG TAB PO PRN ×2 (07:39→11:03)
[2017-08-13] MEDS: DOCUSATE SODIUM 50 MG/SENNA 8.6 MG TAB PO SCH (07:39)
[2017-08-13 08:00] VITALS: BP 113/68; PULSE 61; RESP 20; TEMP 98; O2SAT 98
[2017-08-13] MEDS ORDERED: HYDR-3583 PO (08:27)
--- NOTE | 2017-08-13 08:28 | HHI.DCPOC ---
Discharge Care Plan Diagnosis: (1) Closed displaced fracture of shaft of fourth metacarpal bone of left hand (2) Nondisplaced fracture of shaft of fifth metacarpal bone of left hand Goals to Promote Your Health * To prevent worsening of your condition and complications * To maintain your health at the optimal level Directions to Meet Your Goals Take your medications as prescribed Follow your dietary instruction Follow activity as directed Keep your appointments as scheduled Take your immunizations and boosters as scheduled If your symptoms worsen call your PCP, if no PCP go to Urgent Care Center or Emergency Room Smoking is Dangerous to Your Health. Avoid second hand smoke Call the 24-hour hour crisis hotline for domestic abuse at Niki Wheat MD R2 Aug 13, 2017 08:28
--- NOTE | 2017-08-13 08:38 | HHI.FPPN ---
Subjective Remarks Patient was seen and examined this morning. His left hand pain is worse post- operatively but improved with oral and IV pain medications. Last IV meds were overnight. No fevers, chills. Eating without difficulty. He removed his IV himself this morning and is ready to go home. Objective Vitals Vital Signs Date Time Temp Pulse Resp B/P (MAP) Pulse Ox O2 Delivery O2 Flow Rate FiO2 08/13/17 00:00 98.1 61 15 121/65 (83) 98 08/12/17 20:00 98.4 83 16 144/74 (97) 99 08/12/17 15:00 97.9 76 16 148/65 (92) 98 08/12/17 14:35 98.4 78 12 136/86 (103) 99 Room Air 08/12/17 14:30 76 14 130/75 (93) 99 Room Air 08/12/17 14:15 87 13 150/87 (108) 100 Room Air 08/12/17 14:00 84 15 145/73 (97) 100 Nasal Cannula 2 08/12/17 13:51 98.0 88 20 152/90 (110) 100 Nasal Cannula 2 I/O 08/12/17 08/12/17 08/12/17 08/13/17 08/13/17 08/13/17 07:00 15:00 23:00 07:00 15:00 23:00 Intake Total 0 ml 1380 ml 600 ml 480 ml Output Total 5 ml Balance 0 ml 1375 ml 600 ml 480 ml Intake Oral 0 ml 480 ml 600 ml 480 ml IV Total 0 ml Other 900 ml Output Estimated Blood Loss 5 ml # Voids 2 1 3 4 # Bowel Movements 0 0 0 0 Result Diagram: 08/10/17192108/10/171921 Imaging Last Impressions Hand X-Ray 08/10/17 0000 Signed Impressions: Service Date/Time: Thursday, August 10, 2017 18:23 - CONCLUSION: Dorsal displacement of the distal fracture fragment of the fourth metacarpal fracture relative to the prior study. The fifth metacarpal fracture is unchanged. Paulie Raphael Jr., MD Objective Remarks GENERAL: well nourished young male in no apparent distress. SKIN: Warm and dry. No rashes or ecchymoses. Skin over right hand shiny and mildly erythematous MSK: Left hand is in post-surgical wrapping. Distal fingers examined with normal capillary refill. Mild limitation of ROM due to splint. Industrial Specialist limited on this hand over 4th and 5th digits, normal in 1-3rd digits. RIGHT hand exam is normal. HEAD: Atraumatic. Normocephalic. EYES: Pupils equal and round. No scleral icterus. No injection or drainage. ENT: No nasal bleeding or discharge. Mucous membranes pink and moist. NECK: Trachea midline. No JVD. CARDIOVASCULAR: Regular rate and rhythm. 2+ distal pulses including left radial. Normal capillary refill in UEs bilaterally. RESPIRATORY: No accessory muscle use. Clear to auscultation. Breath sounds equal bilaterally. GASTROINTESTINAL: Abdomen soft, non-tender, nondistended. Hepatic and splenic margins not palpable. NEUROLOGICAL: Awake and alert. No obvious cranial nerve deficits. Motor grossly within normal limits. Five out of 5 muscle strength in the arms and legs aside from left hand. Normal speech. Neurovascularly intact. PSYCHIATRIC: Appropriate mood and affect; insight and judgment normal. Medications and IVs Inpatient Medications Acetaminophen (Tylenol) 650 mg Q4H PRN PO FEVER > 100.4; Start 08/10/17 at 20: 00 Acetaminophen/ Hydrocodone Bitart (Rufe 5-325 Mg) 1 tab Q4H PRN PO PAIN SCALE 3 TO 5; Start 08/10/17 at 20:00 Acetaminophen/ Hydrocodone Bitart (Rufe 10-325 Mg) 1 tab Q4H PRN PO PAIN SCALE 6 TO 10 Last administered on 08/13/17 07:39; Start 08/10/17 at 20:00 Bisacodyl (Dulcolax Supp) 10 mg DAILY PRN RECTAL SEVERE CONSITIPATION; Start 08/10/17 at 20:00 Cefazolin Sodium (Ancef Inj) 1,000 mg ONCE ONCE IV Last administered on 12:20; Start 08/12/17 at 12:20; Stop 08/12/17 at 15:21; Status DC Chlorhexidine Gluconate (Chlorhexidine 2% Cloth) 3 pack AUTOMATIC PAD MAKING MACHINE OPERATOR PRN TOPICAL SEE LABEL COMMENTS; Start 08/10/17 at 22:45; Stop 08/13/17 at 22:44 Insulin Human Regular (NovoLIN R INJ) See Protocol Table ... AUTOMATIC PAD MAKING MACHINE OPERATOR PRN SQ SEE PROTOCOL TABLE; Start 08/10/17 at 22:45; Stop 08/13/17 at 22:44 Lactated Ringer's 1,000 ml @ 30 mls/hr Q24H PRN IV SEE LABEL COMMENTS Last administered on 08/12/17 07:51; Start 08/10/17 at 22:45; Stop 08/13/17 at 22 :44 Lactulose (Lactulose Liq) 30 ml DAILY PRN PO SEVERE CONSITIPATION; Start 08/10 at 20:00 Magnesium Hydroxide (Milk Of Magnesia Liq) 30 ml Q12H PRN PO Mild constipation ; Start 08/10/17 at 20:00 Metoprolol Tartrate (Lopressor) 25 mg AUTOMATIC PAD MAKING MACHINE OPERATOR PRN PO SEE LABEL COMMENTS; Start 08/10/17 at 22:45; Stop 08/13/17 at 22:44 Miscellaneous Information ALL NURSING DEPARTME... UNSCH PRN .XX SEE LABEL COMMENTS; Start 08/12/17 at 13:50; Stop 08/13/17 at 13:49 Morphine Sulfate (Morphine Inj) 4 mg Q3H PRN IV PUSH BREAKTHROUGH PAIN Last administered on 08/12/17 19:40; Start 08/10/17 at 20:00 Naloxone HCl (Narcan Inj) 0.4 mg UNSCH PRN IV PUSH SEE LABEL COMMENTS; Start 08/10/17 at 20:00 Ondansetron HCl (Zofran Inj) 4 mg Q6H PRN IVP NAUSEA OR VOMITING; Start at 20:00 Povidone Iodine (Betadine 5% Antisepsis Kit) 1 applic AUTOMATIC PAD MAKING MACHINE OPERATOR PRN EACH NARE SEE LABEL COMMENTS; Start 08/10/17 at 22:45; Stop 08/13/17 at 22:44 Senna/Docusate Sodium (Aaliyah-Colace) 1 tab BID PO Last administered on 07:39; Start 08/10/17 at 21:00 Sennosides (Senokot) 17.2 mg Q12H PRN PO Moderate constipation; Start at 20:00 Sodium Chloride 500 ml @ 30 mls/hr [id number] PRN IV SEE LABEL COMMENTS; Start at 22:45; Stop 08/13/17 at 22:44 Sodium Chloride (NS Flush) 2 ml BID IV FLUSH Last administered on 08/12/17t 19 :40; Start 08/10/17 at 21:00 Urinary Catheter: No Vascular Central Line Catheter: No A/P Assessment and Plan 21M with left hand injury from TV falling on it 2.5 weeks ago, with resultant nonhealing left 4th metacarpal, displaced. He was admitted for surgical management and is s/p surgical pinning per Dr. Grace on 08/12. We appreciate his management. Labs grossly WNL. Pain control with Tylenol and Rufe, with morphine PRN as inpt. To discharge with Rufe 10-325mg q4-6hr, #30. Patient agrees with plan. Discharge Planning Discharge to home today. Follow up with Dr. Najera on Saturday. Problem List: (1) Closed left hand fracture ICD Codes: S62.92XA - Unspecified fracture of left wrist and hand, initial encounter for closed fracture Status: Acute Plan: As above (2) Fluids/Electrolytes/Nutrition/Prophylaxis Status: Acute Plan: Fluids: PO hydration Electrolytes: wnl Nutrition: regular diet DVT Prophylaxis: Early ambulation GI Prophylaxis: Not indicated Problem Qualifiers (1) Closed left hand fracture: Qualified Codes: S62.92XD - Unspecified fracture of left wrist and hand, subsequent encounter for fracture with routine healing Niki Wheat MD R2 Aug 13, 2017 08:38
--- NOTE | 2017-08-13 10:04 | HHI.DS ---
Discharge Summary Admission Date Aug 10, 2017 at 19:50 Discharge Date: Aug 13, 2017 Admitting Diagnosis left hand 4th and 5th metacarpal fractures (1) Closed left hand fracture Diagnosis: Principal Plan: As above ICD Codes: S62.92XA - Unspecified fracture of left wrist and hand, initial encounter for closed fracture Status: Acute (2) Fluids/Electrolytes/Nutrition/Prophylaxis Diagnosis: Principal Plan: Fluids: PO hydration Electrolytes: within normal limits Nutrition: regular diet DVT Prophylaxis: Early ambulation GI Prophylaxis: Not indicated Status: Acute Consultants Dr. Grace - hand surgery Brief History Patient is a 21 year old male with no significant PMH who presents for follow- up of left hand fractures. He had a TV fall on the left hand when he tried to move it on 07/29/17 It was placed in a splint in the ED that day and patient was to follow up as outpatient Referral not placed and no follow up occurred He did note getting splint wet today Patient states pain only occurs when he tries to close the fingers He is able to use 1st through 3rd fingers without difficulty He is left-handed He denies any other concerns and states Lortab helped with the pain significantly CBC/BMP: 08/10/17 1922 08/10/17 1922 Significant Findings Laboratory Tests Test 08/10/17 19:22 Blood Urea Nitrogen 5 MG/DL (7-18) Aspartate Amino Transf (AST/SGOT) 9 U/L (15-39) Imaging Last Impressions Hand X-Ray 08/10/17 0000 Signed Impressions: Service Date/Time: Thursday, August 10, 2017 18:23 - CONCLUSION: Dorsal displacement of the distal fracture fragment of the fourth metacarpal fracture relative to the prior study. The fifth metacarpal fracture is unchanged. Paulie Raphael Jr., MD PE at Discharge GENERAL: well nourished young male in no apparent distress. SKIN: Warm and dry. No rashes or ecchymoses. Skin over right hand shiny and mildly erythematous MSK: Left hand is in post-surgical wrapping. Distal fingers examined with normal capillary refill. Mild limitation of ROM due to splint. Wire Charger limited on this hand over 4th and 5th digits, normal in 1-3rd digits. RIGHT hand exam is normal. HEAD: Atraumatic. Normocephalic. EYES: Pupils equal and round. No scleral icterus. No injection or drainage. ENT: No nasal bleeding or discharge. Mucous membranes pink and moist. NECK: Trachea midline. No JVD. CARDIOVASCULAR: Regular rate and rhythm. 2+ distal pulses including left radial. Normal capillary refill in UEs bilaterally. RESPIRATORY: No accessory muscle use. Clear to auscultation. Breath sounds equal bilaterally. GASTROINTESTINAL: Abdomen soft, non-tender, nondistended. Hepatic and splenic margins not palpable. NEUROLOGICAL: Awake and alert. No obvious cranial nerve deficits. Motor grossly within normal limits. Five out of 5 muscle strength in the arms and legs aside from left hand. Normal speech. Neurovascularly intact. PSYCHIATRIC: Appropriate mood and affect; insight and judgment normal. Hospital Course Patient was admitted for surgical management of closed fracture as noted above. He had no pre-operative or post-operative complications. Dr. Grace recommends follow-up on Saturday, August 16, 2017 and patient is made aware that he needs to call and schedule appointment. Pain control achieved with [place], and he was discharged with this medication. Patient stable for discharge to home. Pt Condition on Discharge: Stable Discharge Disposition: Discharge Home Discharge Instructions DIET: Follow Instructions for: As Tolerated, No Restrictions Activities you can perform: Regular-No Restrictions Other Activity Instructions: Elevate L arm. No use of arm until cleared by surgical MD. Follow up Referrals: Hand Surgery - 08/16/17 with Jamel Grace MD PCP Follow-up - 1 Week New Medications: Hydrocodone-Acetaminophen (Hydrocodone-Acetaminophen) 10-325 mg Tab 1 TAB PO Q4H PRN for PAIN >5/10, #30 TAB Discontinued Medications: Hydrocodone-Acetaminophen (Lortab) 5-325 Mg Tab 1 TAB PO Q4H PRN for PAIN, #15 TAB 0 Refills Ibuprofen (Ibuprofen) 800 Mg Tab 800 MG PO Q6HR PRN for PAIN, #40 TAB 0 Refills Niki Wheat MD R2 Aug 13, 2017 10:03
--- NOTE | 2017-08-13 10:50 | MP ---
cc: REDD TIDWELL MD DATE OF SURGERY 08/12/2015 PREOPERATIVE DIAGNOSIS Displaced fracture fourth metacarpal shaft left hand closed nondisplaced fifth metacarpal shaft fracture left hand closed. POSTOPERATIVE DIAGNOSIS Displaced closed fourth metacarpal shaft left hand and nondisplaced closed fifth metacarpal shaft fracture left hand. PROCEDURE NOTE Attempted closed reduction, open reduction internal fixation with K-wires fourth metacarpal shaft fracture left hand. SURGEON Dr. Tidwell ANESTHESIA General ESTIMATED BLOOD LOSS Minimal TOURNIQUET TIME 49 minutes at 250 mmHg IMPLANTS USED 0.035 K-wires x2. DISPOSITION The patient was recovered and sent to Recovery Room in stable condition. INDICATIONS The patient is a 89-year-old left-hand dominant male who presented with complaints of fall of heavy object over the left hand and injuring his left hand 12 days ago. The patient was diagnosed with a fourth and fifth metacarpal shaft fracture. He initially was splinted and the patient did not have a follow up appointment. He represented to the to the ED with complaints of deformity of the left hand. On examination the patient had prominence over the dorsal aspect of the fourth metacarpal shaft region. He also had tenderness over the region with free range of motion of the ring and little finger was associated with pain. On examination, he had a displaced fourth metacarpal shaft fracture with overlapping of the fracture fragments and displaced fracture of the fifth metacarpal shaft. This had remained unchanged for the past 12 days. The patient was consented for closed/open reduction, internal fixation of the fourth metacarpal shaft and possible fixation of fifth metacarpal shaft. He was explained the risks and benefits of the procedure. PROCEDURE The patient was brought to the operating room and under general anesthesia the left upper extremity was thoroughly prepped and draped. Closed reduction was initially attempted with the fourth metacarpal shaft which was unsuccessful. Attention was made to proceed with open reduction of the fourth metacarpal shaft. The fifth metacarpal shaft appeared stable with finger range of motion, hence decision was made not to fix the fifth metacarpal shaft fracture. A longitudinal incision site was marked over the fourth metacarpal shaft measuring about 3 cm. The limb was exsanguinated using Esmarch tourniquet, tourniquet was inflated to 250 mmHg. Incision was then made over the proposed incision site. Soft tissue dissection was carried out. The extensor tendon was retracted towards the radial aspect exposing the fracture surface. There was evidence of callus formation over the dorsal aspect of the fourth metacarpal shaft. Sharp dissection was carried out exposing the fracture surface. There was also evidence of callus formation with overlapping of the fracture fragments. The soft tissue was cleared between the fracture fragments. Reduction was confirmed using C-arm. Two K-wires 0.035 was drilled in an antegrade fashion from the fracture surface across the distal fragment exiting the MP joint region. The fracture was reduced and the K-wires were then closed in an retrograde fashion across the proximal fragment. Reduction was confirmed using C-arm. Multiple views were obtained. The fracture was reduced and the K-wire was well-aligned. The K-wires were then cut, bent and protected with Nakul balls. A thorough wash of the wound was carried out. Tourniquet deflated. Total tourniquet time was 49 minutes. He had good distal circulation after his tourniquet. Bleeding points were cauterized with bipolar cautery. The periosteum was then covered over the fracture site using multiple 4-0 Vicryl stitches. The skin was then approximated using 5-0 nylon in a horizontal mattress interrupted fashion. Xeroform bacitracin dressing was applied. A bulky hand dressing was applied which was held in place by [facility] and the volar short-arm splint was applied leaving the finger joints free. The patient was sent to the Recovery Room in stable condition. He can be discharged home on p.o. pain medication and I will see the patient in the office in [id number] days' time. Redd Tidwell MD SE/GUCCI /1:52 PM /10:37 AM
== END 2017-08-13 14:04 | disposition home or self-care (01) | DRG 514 ==
LOC: NEPK 16:11 → NEDA 19:31 → OBSVTOIN 19:50 → N06A 20:45
PROVIDERS: ADMIT Family Medicine; ATTEND Family Medicine
PROC: 0PSQ04Z Reposition Left Metacarpal with Internal Fixation Device, Open Approach (ICD-10-PCS; principal; 2017-08-12 11:57)
DX: S62.325A Displaced fracture of shaft of fourth metacarpal bone, left hand, initial encounter for closed fracture (principal); S62.357A Nondisplaced fracture of shaft of fifth metacarpal bone, left hand, initial encounter for closed fracture; W20.8XXA Other cause of strike by thrown, projected or falling object, initial encounter
CPT/HCPCS: 73130; 76000; 80053; 85025; 85610; 85730; 86850; 86900; 86901; J0131; J0690; J1100; J2175; J2250; J2270; J2370; J2405; J3010; J7120

== ENCOUNTER 2018-02-14 11:03 | Emergency (ER) | payer OTHER ==
[~2018-02-14] VITALS: Ht 185.4 cm; Wt 68.0 kg
[~2018-02-14 11:03] MED LIST changes: -HYDR-3533 PO; +HYDR-3583 PO; -IBUP800T23 PO
[2018-02-14 11:10] VITALS: BP 113/58; PULSE 71; RESP 18; TEMP 98.4; O2SAT 99
--- NOTE | 2018-02-14 11:28 | PD ---
HPI Chief Complaint: Pain: Acute or Chronic Time Seen by Provider: 11:19 Travel History International Travel<30 days: No Contact w/Intl Traveler<30days: No Traveled to known affect area: No History of Present Illness HPI 22-year-old -[place] male presents emergency department with worsening pain and swelling in the left hand over the past week. Patient denies any recurrent injury. Patient does have history of injury to the fourth metacarpal requiring open reduction and fixation by Dr. Hdz, last fall. He states hardware was removed in August of last year. Patient denies recurrent injury. He denies fever, chills, or other symptoms he denies numbness or tingling. Range of motion is somewhat diminished secondary to the swelling. Pain is stated to be 8/10 with palpation. He has no other symptoms. He has no known drug allergies PFSH Social History Tobacco Use: No Substance Use: Yes (OCCASIONAL POT) Allergies-Medications (Allergen,Severity, Reaction): Coded Allergies: No Known Allergies (Unverified Adverse Reaction, Unknown, 02/14/18) Reported Meds & Prescriptions Reported Meds & Active Scripts Active Hydrocodone-Acetaminophen 10-325 mg Tab 1 Tab PO Q4H PRN Review of Systems Except as stated in HPI: all other systems reviewed are Neg General / Constitutional: No: Fever Eyes: No: Visual changes HENT: No: Headaches Cardiovascular: No: Chest Pain or Discomfort Respiratory: No: Shortness of Breath Gastrointestinal: No: Abdominal Pain Genitourinary: No: Dysuria Musculoskeletal: Positive: Arthralgias, Limited ROM, Pain, Other (See history of present illness) Skin: No Rash Neurologic: No: Weakness Psychiatric: No: Depression Endocrine: No: Polydipsia Hematologic/Lymphatic: No: Easy Bruising Physical Exam Narrative GENERAL: Patient appears in no acute distress per SKIN: Warm and dry. Normal color. Normal turgor. Patient has well-healed incisional scar to the dorsal left hand over the fourth metacarpal with localized swelling and mild erythema. There is no sign of obvious abscess or cellulitis. No wound dehiscence is noted HEAD: Atraumatic. Normocephalic. EYES: Pupils equal and round. No scleral icterus. No injection or drainage. ENT: No nasal bleeding or discharge. Mucous membranes pink and moist. Pharynx is clear. Airways patent NECK: Trachea midline. Supple and nontender CARDIOVASCULAR: Regular rate and rhythm. RESPIRATORY: No accessory muscle use. Clear to auscultation. Breath sounds equal bilaterally. GASTROINTESTINAL: Abdomen soft, non-tender, nondistended. Hepatic and splenic margins not palpable. MUSCULOSKELETAL: Extremities without clubbing, cyanosis, or edema. No obvious deformities. Patient has swelling along the fourth metacarpal consistent with possible recurrent fracture or nonunion. Range of motion is intact although somewhat limited secondary to swelling. Question of crepitus is noted with motion and palpation. Rest of the exam is unremarkable. NEUROLOGICAL: Awake and alert. No obvious cranial nerve deficits. Motor grossly within normal limits. Five out of 5 muscle strength in the arms and legs. Normal speech. PSYCHIATRIC: Appropriate mood and affect; insight and judgment normal. Data Data Last Documented VS Vital Signs Date Time Temp Pulse Resp B/P (MAP) Pulse Ox O2 Delivery O2 Flow Rate FiO2 02/14/18 11:10 98.4 71 18 113/58 (76) 99 Orders Orders Hand, Complete ([id number]) (02/14/18 11:22) Ice/Cold Pack (02/14/18 11:22) Splinting (02/14/18 ) [facility] Medical Decision Making Medical Screen Exam Complete: Yes Emergency Medical Condition: Yes Medical Record Reviewed: Yes Differential Diagnosis Left hand pain and swelling. Possible nonunion of previous fracture. Cellulitis. Narrative Course Patient is medically stable at time of exam. Ice is placed over the area for pain. X-ray of the left hand is ordered. X-ray shows possible nonunion of previous fractures with question of refracture. Patient is placed in a left ulnar gutter splint to include the fourth and fifth metacarpals. Splint to remain in place until seen by hand surgeon. Patient can take extra strength Tylenol every 6 hours as needed pain. Patient should call Dr. Grace's office for follow-up as he saw him for his original fracture. Diagnosis Primary Impression: Closed displaced fracture of shaft of fourth metacarpal bone of left hand Qualified Codes: S62.325K - Displaced fracture of shaft of fourth metacarpal bone, left hand, subsequent encounter for fracture with nonunion Referrals: Jamel Grace MD Patient Instructions: General Instructions Disposition: DISCHARGE HOME Condition: Stable Kemar Alarcon Feb 14, 2018 11:28
--- NOTE | 2018-02-14 12:09 | RADRPT ---
EXAM DATE/TIME: 02/14/2018 11:36 [facility] COMPARISON: No previous studies available for comparison. INDICATIONS : Left hand pain and swelling for one week, no recent trauma. MEDICAL HISTORY : Previous fractures of the 4th and 5th metacarpals. SURGICAL HISTORY : External fixation. ENCOUNTER: Initial ACUITY: 1 week PAIN SCORE: 8/10 LOCATION: Left 5th metacarpal. FINDINGS: Three view examination of the left hand demonstrates an oblique lucency through the fourth and fifth metacarpal shafts either incompletely healed fractures or acute refractures. The carpal bones appea r intact. The interphalangeal and metacarpophalangeal joints are intact. Bony mineralization is nor mal. CONCLUSION: Persistent lucency involving the fourth and fifth metacarpal shafts could be refracture. Edilberto Orozco MD on February 14, 2018 at 12:05 Board Certified Radiologist. This report was verified electronically.
== END 2018-02-14 12:44 | disposition home or self-care (01) ==
LOC: NEPD 11:03
DX: S62.325K Displaced fracture of shaft of fourth metacarpal bone, left hand, subsequent encounter for fracture with nonunion (principal); X58.XXXD Exposure to other specified factors, subsequent encounter
CPT/HCPCS: 29125; 73130